=== PATIENT | male | born 1955 | race American Indian/Alaskan Native ===

== ENCOUNTER 2017-04-10 09:35 | Outpatient (CLI) | payer MEDICAID ==
[2017-04-10 10:18] LABS: Blood Urea Nitrogen 12 mg/dL (9-20)
[2017-04-10] MEDS ORDERED: NACL ONE (10:42)
--- NOTE | 2017-04-10 12:29 | Cat Scan Report ---
CT CERVICAL SPINE WITH AND WITHOUT CONTRAST INDICATION: Cervicalgia. COMPARISON: None similar. FINDINGS: Cervical spine CT performed before and after IV contrast. Axial, sagittal and coronal CT reconstruction obtained. Normal imaged posterior fossa and clear mastoid air cells. Bilateral external auditory canal debris may be directly visualized. Predominantly edentulous jaw. Intact craniocervical articulation, dens, predental space and posterior elements. C2-C4 demonstrate anteroinferior degenerative spurring. C5-C7 anterior fusion hardware creates streak artifact, limiting assessment with slightly prominent prevertebral soft tissues at this level as well. No abnormal enhancement or focal fluid collection however. Pharynx and upper hypopharynx appears within normal limits. Right vallecula and left piriform sinus however not well seen with concentric airway narrowing inferiorly as on axial series 3, images 43-50 with mild surrounding soft tissue density/thickening as well. A 1 x 0.9 cm radiodensity also noted at the level of cricoid cartilage/vocal cord on the right, axial image 54, nonspecific, though not excluded for a vocal cord implant, possibly anchored to the thyroid cartilage on the right. Grossly normal thyroid. Clear imaged lung apices. On the obtained axial images: C2-C3 is unremarkable. C3-C4 demonstrates slight uncovertebral spurring and slight neural foramina narrowing. Mild left facet arthropathy. C4-C5 also demonstrates mild bilateral facet arthropathy. C5-C6, C6-C7 and C7-T1 demonstrate degenerative uncovertebral spurring and facet arthropathy with possible neural foraminal narrowing. Cervical spine straightening at this level also seen. Assessment of the spinal canal itself also compromised at these and further inferior levels. CONCLUSION: 1. No acute cervical spine CT abnormality in this patient with multilevel degenerative changes and C5-C7 anterior fusion, as described. 2. Abnormal CT appearance at the level of the hypopharynx inferiorly and the larynx, as described with possibilities including neoplasm and/or prior radiation amongst others with a nonspecific radiodensity/possible vocal cord implant also seen on the right, as detailed above. ENT correlation recommended. Thank you for the opportunity to participate in this patient's care.
== END 2017-04-10 09:36 | disposition home or self-care (01) ==
LOC: CT 09:35
PROVIDERS: ATTEND Anesthesiology
DX: M47.892 Other spondylosis, cervical region (principal); M12.88 Other specific arthropathies, not elsewhere classified, other specified site; M43.22 Fusion of spine, cervical region; Z96.89 Presence of other specified functional implants
CPT/HCPCS: 36415; 72127; 82565; 84520; Q9967

== ENCOUNTER 2017-10-25 09:58 | Emergency (ER) | payer MEDICAID ==
[2017-10-25 10:30] VITALS: BP 178/111
[2017-10-25] MEDS ORDERED: TORADOL IM ONE (11:21)
--- NOTE | 2017-10-25 11:25 | Emergency Department Report ---
<LYUDMILA VALDES - Last Filed: 10/25/17 11:30> ED General Adult HPI - General Chief complaint: Urogenital-Male Stated complaint: GROIN PAIN Time Seen by Provider: 10/25/17 11:17 Source: patient Mode of arrival: Ambulatory Limitations: No Limitations - History of Present Illness Initial comments: This is a 62-year-old male nontoxic, well nourished in appearance, no acute signs of distress presents to the ED with c/o of right groin hernia pain x4 days. Patient stated has history of hernia in the groin for years but has not had anything done to it. Patient denies any urinary symptoms. Patient denies any abdominal pain, chest pain, shortness of breathe, fever, chills, headache, nausea, vomiting, back pain, numbness or tingling. Patient denies any radiation of pain. Denies any urinary symptoms. Patient denies any allergies. PMH includes HTN, MD Complaint: Right groin pain -: days(s) (4) Radiation: non-radiation Severity scale (0 -10): 8 Quality: aching Consistency: constant Improves with: none Worsens with: none Associated Symptoms: denies other symptoms. denies: confusion, chest pain, cough, diaphoresis, fever/chills, headaches, loss of appetite, malaise, nausea/ vomiting, rash, seizure, shortness of breath, syncope, weakness Treatments Prior to Arrival: none - Related Data Previous Rx's Medication Instructions Recorded Last Taken Type Gentamicin 0.3% Ophth Soln 2 drops OP Q4H #1 bottle 10/21/14 Unknown Rx HYDROcodone/APAP 5-325 [[place] 1 - 2 each PO Q6HR PRN #30 tablet 10/21/14 Unknown Rx 5/325] Docusate Sodium [Colace] 100 mg PO BID #30 capsule 10/25/17 Unknown Rx traMADol [Ultram] 50 mg PO Q6HR PRN #12 tablet 10/25/17 Unknown Rx Allergies Allergy/AdvReac Type Severity Reaction Status Date / Time No Known Allergies Allergy Verified 10/21/14 22:27 ED Review of Systems ROS: Stated complaint: GROIN PAIN Other details as noted in HPI Constitutional: denies: chills, fever Eyes: denies: eye pain, eye discharge, vision change ENT: denies: ear pain, throat pain Respiratory: denies: cough, shortness of breath, wheezing Cardiovascular: denies: chest pain, palpitations Endocrine: no symptoms reported Gastrointestinal: denies: abdominal pain, nausea, diarrhea Genitourinary: denies: urgency, dysuria Musculoskeletal: denies: back pain, joint swelling, arthralgia Skin: denies: rash, lesions Neurological: denies: headache, weakness, paresthesias Psychiatric: denies: anxiety, depression Hematological/Lymphatic: denies: easy bleeding, easy bruising ED Past Medical Hx - Past Medical History Hx Hypertension: No - Surgical History Additional Surgical History: Cervical Fussion 1988 - Social History Smoking Status: Current Every Day Smoker Substance Use Type: None - Medications Home Medications: Home Medications Medication Instructions Recorded Confirmed Last Taken Type Gentamicin 0.3% Ophth Soln 2 drops OP Q4H #1 bottle 10/21/14 Unknown Rx HYDROcodone/APAP 5-325 [[place] 1 - 2 each PO Q6HR PRN #30 tablet 10/21/14 Unknown Rx 5/325] Docusate Sodium [Colace] 100 mg PO BID #30 capsule 10/25/17 Unknown Rx traMADol [Ultram] 50 mg PO Q6HR PRN #12 tablet 10/25/17 Unknown Rx ED Physical Exam - General Limitations: No Limitations General appearance: alert, in no apparent distress - Head Head exam: Present: atraumatic, normocephalic - Eye Eye exam: Present: normal appearance Pupils: Present: normal accommodation - ENT ENT exam: Present: normal exam, mucous membranes moist - Neck Neck exam: Present: normal inspection, full ROM - Respiratory Respiratory exam: Present: normal lung sounds bilaterally. Absent: respiratory distress, wheezes, rales, rhonchi, stridor, chest wall tenderness, accessory muscle use, decreased breath sounds, prolonged expiratory - Cardiovascular Cardiovascular Exam: Present: regular rate, normal rhythm, normal heart sounds. Absent: bradycardia, tachycardia, irregular rhythm, systolic murmur, diastolic murmur, rubs, gallop - GI/Abdominal GI/Abdominal exam: Present: soft, tenderness (right groin with swelling. Reducible hernia.), normal bowel sounds. Absent: distended, guarding, rebound, rigid, diminished bowel sounds - Rectal Rectal exam: Present: deferred - Extremities Exam Extremities exam: Present: normal inspection, full ROM, normal capillary refill - Back Exam Back exam: Present: normal inspection, full ROM - Neurological Exam Neurological exam: Present: alert, oriented X3, normal gait - Psychiatric Psychiatric exam: Present: normal affect, normal mood - Skin Skin exam: Present: warm, dry, intact, normal color. Absent: rash ED Course Vital Signs 10/25/17 10:27 Temperature 98.2 F Pulse Rate 64 Respiratory 16 Rate Blood Pressure 178/111 O2 Sat by Pulse 97 Oximetry - Reevaluation(s) Reevaluation #1: 10/25/17 11:30 Patient is speaking in full sentences with no signs of distress noted. ED Medical Decision Making - Medical Decision Making This is a 62-year-old male that presents with right groin hernia pain. Patient is stable and was examined by me and Dr. Limon. Patient is stable and was examined by me. Dr. Limon has reduced the hernia successfully with no completions. Patient is discharged with motrin. Patient was referred to Follow- up with a primary care/general surgeon doctor in 3-5 days or if symptoms worsen and continue return to emergency room as soon as possible. At time of discharge , the patient does not seem toxic or ill in appearance. No acute signs of distress noted. Patient agrees to discharge treatment plan of care. No further questions noted by the patient. Critical care attestation.: If time is entered above; I have spent that time in minutes in the direct care of this critically ill patient, excluding procedure time. ED Disposition Clinical Impression: Hernia Disposition: DC-01 TO HOME OR SELFCARE Condition: Stable Additional Instructions: Follow-up with a primary care/general surgeon doctor in 3-5 days or if symptoms worsen and continue return to emergency room as soon as possible. Prescriptions: Docusate Sodium [Colace] 100 mg PO BID #30 capsule traMADol [Ultram] 50 mg PO Q6HR PRN #12 tablet PRN Reason: Pain Referrals: CAITLIN YARBROUGH MD [Staff Physician] - 3-5 Days <MONICA LIMON - Last Filed: 10/25/17 11:52> ED Medical Decision Making - Medical Decision Making hernia reduced with ease while patient in Trendelenburg position ED Disposition Is pt being admited?: No Does the pt Need Aspirin: No
== END 2017-10-25 12:06 | disposition home or self-care (01) ==
LOC: ED 09:58
DX: K46.9 Unspecified abdominal hernia without obstruction or gangrene (principal); F17.200 Nicotine dependence, unspecified, uncomplicated
CPT/HCPCS: 96372; 99282; J1885

== ENCOUNTER 2017-10-29 14:09 | Emergency (ER) | payer MEDICAID ==
[2017-10-29] MEDS ORDERED: CATAPRES PO ONE (17:36)
[2017-10-29] MEDS ORDERED: CATAPRES ONE (17:36)
--- NOTE | 2017-10-29 17:41 | Emergency Department Report ---
ED General Adult HPI - General Chief complaint: High BP Stated complaint: HTN Time Seen by Provider: 10/29/17 17:30 Source: patient Mode of arrival: Ambulatory Limitations: No Limitations - History of Present Illness Initial comments: He is a [id number] male who has past medical history of hypertension who is presenting with elevated blood pressure. Patient states he went to his pain clinic this morning his blood pressure was elevated he's been out of his Norvasc 10 mg for the past 3 days. Patient states causes primary doctor but was told that he could not get a refill less he came in to see the doctor and the patient was unable to give fit and onto schedule. Patient has appointment for the next week or 2 he is not sure of the date at this time. Patient denies any chest pain or shortness of breath decreased urination. - Related Data Previous Rx's Medication Instructions Recorded Last Taken Type Gentamicin 0.3% Ophth Soln 2 drops OP Q4H #1 bottle 10/21/14 Unknown Rx HYDROcodone/APAP 5-325 [[place] 1 - 2 each PO Q6HR PRN #30 tablet 10/21/14 Unknown Rx 5/325] Docusate Sodium [Colace] 100 mg PO BID #30 capsule 10/25/17 Unknown Rx traMADol [Ultram] 50 mg PO Q6HR PRN #12 tablet 10/25/17 Unknown Rx Amlodipine Besylate [Norvasc] 10 mg PO DAILY #30 tablet 10/29/17 Unknown Rx Allergies Allergy/AdvReac Type Severity Reaction Status Date / Time No Known Allergies Allergy Verified 10/21/14 22:27 ED Review of Systems ROS: Stated complaint: HTN Other details as noted in HPI Comment: All other systems reviewed and negative ED Past Medical Hx - Past Medical History Hx Hypertension: Yes - Surgical History Additional Surgical History: Cervical Fussion 1988 - Social History Smoking Status: Current Every Day Smoker Substance Use Type: Alcohol - Medications Home Medications: Home Medications Medication Instructions Recorded Confirmed Last Taken Type Gentamicin 0.3% Ophth Soln 2 drops OP Q4H #1 bottle 10/21/14 Unknown Rx HYDROcodone/APAP 5-325 [[place] 1 - 2 each PO Q6HR PRN #30 tablet 10/21/14 Unknown Rx 5/325] Docusate Sodium [Colace] 100 mg PO BID #30 capsule 10/25/17 Unknown Rx traMADol [Ultram] 50 mg PO Q6HR PRN #12 tablet 10/25/17 Unknown Rx Amlodipine Besylate [Norvasc] 10 mg PO DAILY #30 tablet 10/29/17 Unknown Rx ED Physical Exam - General Limitations: No Limitations General appearance: alert, in no apparent distress - Head Head exam: Present: atraumatic, normocephalic - Eye Eye exam: Present: normal appearance - ENT ENT exam: Present: mucous membranes moist - Neck Neck exam: Present: normal inspection - Respiratory Respiratory exam: Present: normal lung sounds bilaterally. Absent: respiratory distress - Cardiovascular Cardiovascular Exam: Present: regular rate, normal rhythm. Absent: systolic murmur, diastolic murmur, rubs, gallop - GI/Abdominal GI/Abdominal exam: Present: soft, normal bowel sounds - Rectal Rectal exam: Present: deferred - Extremities Exam Extremities exam: Present: normal inspection - Back Exam Back exam: Present: normal inspection - Neurological Exam Neurological exam: Present: alert, oriented X3 - Psychiatric Psychiatric exam: Present: normal affect, normal mood - Skin Skin exam: Present: warm, dry, intact, normal color. Absent: rash ED Course Vital Signs 10/29/17 14:24 Temperature 98.8 F Pulse Rate 65 Respiratory 18 Rate Blood Pressure 173/112 O2 Sat by Pulse 98 Oximetry ED Medical Decision Making - Medical Decision Making She was given Catapres here in the emergency department will be discharged home with a refill for his Norvasc and he's able to see his doctor. Critical care attestation.: If time is entered above; I have spent that time in minutes in the direct care of this critically ill patient, excluding procedure time. ED Disposition Clinical Impression: Hypertensive urgency Disposition: DC-01 TO HOME OR SELFCARE Is pt being admited?: No Does the pt Need Aspirin: No Condition: Stable Instructions: Chronic Hypertension (ED) Prescriptions: Amlodipine Besylate [Norvasc] 10 mg PO DAILY #30 tablet
[2017-10-29 17:44] VITALS: BP 148/106
== END 2017-10-29 18:18 | disposition home or self-care (01) ==
LOC: ED 14:09
DX: I16.0 Hypertensive urgency (principal); I10 Essential (primary) hypertension; F17.200 Nicotine dependence, unspecified, uncomplicated
CPT/HCPCS: 99282

== ENCOUNTER 2017-11-21 08:17 | Day surgery (SDC) | payer MEDICAID ==
--- NOTE | 2017-11-20 12:59 | Anesthesia Day of Surgery ---
Anesthesia Day of Surgery - Day of Surgery Patient Examined: Yes Patient H&P Reviewed: Yes Patient is NPO: Yes
--- NOTE | 2017-11-20 13:01 | Anesthesia Consultation ---
Anesthesia Consult and Med Hx Date of service: 11/20/17 - Airway Anesthetic Teeth Evaluation: Poor, Edentulous ROM Head & Neck: Adequate Mental/Hyoid Distance: Adequate Mallampati Class: Class II Intubation Access Assessment: Probably Good - Pulmonary Exam CTA: Yes - Cardiac Exam Cardiac Exam: RRR - Pre-Operative Health Status ASA Pre-Surgery Classification: ASA2 Proposed Anesthetic Plan: General - Pulmonary Hx Smoking: Yes (1/2 PPD FOR 35 YEARS) - Cardiovascular System Hx Hypertension: Yes (15 YEARS) - Central Nervous System Hx Back Pain: Yes Hx Psychiatric Problems: No - Other Systems Hx Alcohol Use: Yes ([facility]) Hx Substance Use: No Hx Cancer: No
--- NOTE | 2017-11-20 13:47 | XRay Report ---
ROUTINE CHEST, TWO VIEWS: HISTORY: Presurgical evaluation. The trachea, heart, mediastinal contour, lung rasmussen and bony thorax are unremarkable. Lower cervical fusion changes are partially imaged. IMPRESSION: Unremarkable chest x-ray.
[~2017-11-21 08:17] MED LIST: LACTATED RINGERS 1,000 ML IV SCH; VERSED IV NR
[2017-11-21] MEDS ORDERED: ZEMURON IV ONE (09:55)
[2017-11-21] MEDS ORDERED: XYLOCAINE MPF 2% ONE ×2 (09:55→13:36)
[2017-11-21] MEDS ORDERED: DIPRIVAN 10 MG/ML IV ONE (09:56)
[2017-11-21] MEDS ORDERED: SUBLIMAZE ONE (09:56)
[2017-11-21] MEDS ORDERED: ANCEF/STERILE WATER 2 GM/20 ML IV NR ×3 (10:00→11:00)
[2017-11-21] MEDS ORDERED: XYLOCAINE 1% 20 mL ONE (10:32)
[2017-11-21] MEDS ORDERED: MARCAINE 0.5% 30 ML INFILTRATI ONE (10:32)
[2017-11-21] MEDS ORDERED: NACL 0.9% IR ONE (10:42)
[2017-11-21] MEDS ORDERED: XYLOCAINE 1% 20 mL INFILTRATI ONE (10:42)
[2017-11-21] MEDS ORDERED: MARCAINE 0.5% INFILTRATI ONE (10:42)
[2017-11-21] MEDS ORDERED: TORADOL ONE (12:51)
[2017-11-21] MEDS ORDERED: ZOFRAN ONE (12:51)
[2017-11-21] MEDS ORDERED: ROBINUL ONE (13:00)
[2017-11-21] MEDS ORDERED: NEOSTIGMINE ONE (13:00)
[2017-11-21] MEDS ORDERED: DECADRON ONE (13:29)
--- NOTE | 2017-11-21 13:38 | Discharge Summary ---
Providers - Providers Date of Admission: 11/21/2017 Date of discharge: 11/21/17 Attending physician: CAITLIN YARBROUGH MD Primary care physician: VALENTE BAUER Hospitalization Condition: Stable Pertinent studies: none Procedures: Lap BIH with mesh Hospital course: Uneventful surgery. Disposition: -01 TO HOME OR SELFCARE Time spent for discharge: 15min - Discharge Diagnoses (1) Inguinal hernia bilateral, non-recurrent Status: Acute Qualifiers: Obstruction and gangrene presence: without obstruction or gangrene Recurrence: non-recurrent Qualified Code(s): K40.20 - Bilateral inguinal hernia, without obstruction or gangrene, not specified as recurrent Comment: Presented for elective Lap BIH repair Core Measure Documentation - Palliative Care Palliative Care/ Comfort Measures: Not Applicable - Core Measures Any of the following diagnoses?: none - VTE Discharge Requirements Deep Vein Thrombosis/Pulmonary Embolism Present on Admission: No Exam - Constitutional Vitals: Temp Pulse Resp BP Pulse Ox 98.6 F 75 12 148/94 99 11/21/17 10:05 11/21/17 10:05 11/21/17 10:05 11/21/17 10:05 11/21/17 09:25 General appearance: Present: no acute distress - Respiratory Respiratory effort: normal - Cardiovascular Heart Sounds: Present: S1 & S2. Absent: rub, click - Abdominal General gastrointestinal: Present: soft, other (No bleeding from incisions) - Integumentary Integumentary: Present: clear, warm, dry Plan Activity: no driving until cleared by PCP Diet: regular Wound: open to air, keep clean and dry, other (May shower tomorrow. Pat dry wounds) Special Instructions: no heavy lifting (no strenuous activity) Follow up with: VALENTE BAUER MD [Primary Care Provider] - 7 Days CAITLIN YARBROUGH MD [Staff Physician] - 14 Days
--- NOTE | 2017-11-21 13:43 | Post Operative Note ---
Date of procedure: 11/21/17 (Dictation#[id number]) Pre-op diagnosis: BIH Post-op diagnosis: same Findings: Left direct inguinal hernia and cord lipoma; right indirect inguinal hernia and cord lipoma Procedure: Lap BIH repair with mesh Anesthesia: PATRICK Surgeon: CAITLIN YARBROUGH Blue Line Trimmer: VALERIA GRIGSBY Estimated blood loss: minimal (less than 10cc) Pathology: none Condition: stable Disposition: PACU
--- NOTE | 2017-11-21 17:42 | Operative Report ---
PREOPERATIVE DIAGNOSIS: Bilateral inguinal hernias. POSTOPERATIVE DIAGNOSIS: Bilateral inguinal hernias. PROCEDURE: Laparoscopic bilateral inguinal herniorrhaphy with mesh. ATTENDING PHYSICIAN: Henry Strong MD FISHER LAMPARA NET: Dr. Roberts. ANESTHESIA: General. ESTIMATED BLOOD LOSS: Less than 10 mL. FLUIDS: 1600 mL. URINE OUTPUT: 350 mL. FINDINGS: Small direct inguinal hernia on the left with large cord lipoma on the right. A moderate size indirect inguinal hernia with cord lipoma. SPECIMENS: None. DRAINS: None. COMPLICATIONS: None. DISPOSITION: Stable transport to Recovery. INDICATIONS: This is a 62-year-old male who presented with complaints of right inguinal pain. The patient was assessed to have a reducible right inguinal hernia and possibly left. The patient is assessed to be in need for bilateral inguinal herniorrhaphy. Procedure, risks, benefits, alternatives were explained in detail to the patient. Risks included but were not limited to infection, bleeding, pain, injury to surrounding structures, possible recurrence, possible need for further procedures in the future. The patient understood and consented. OPERATIVE NOTE: The patient was brought to the operating room and placed on table in supine position. After adequate general anesthesia was established, Mane catheter was inserted. SCDs were in place. Sterile prep and drape was performed. The patient received Ancef at the beginning of the case as well as dexamethasone 0.1 mg/kg at induction. Timeout was performed. I began by anesthetizing the subumbilical skin. A curvilinear incision was made. Dissection was carried down to the left anterior rectus sheath. Transverse incision was made. Rectus muscle was mobilized anteriorly and a 12 mm port was inserted below it. Preperitoneal space was created with insufflation and with blunt dissection. Once enough space had been created, a 5 mm port was inserted inferiorly about 3 fingerbreadths away. We watched it go and under direct vision, a blunt dissection primarily was done to expose the left cord structures. Dissection was carried all the way lateral to the anterior superior iliac spine. Once this was done, another 5 mm port was inserted medial to the anterior superior iliac spine, taking care to not be too close for risk of injuring the nerves at a region in that area. We identified a cord lipoma on the left as well as a small direct inguinal hernia. Cord structures were identified. Fat tissue was mobilized back. Of note, there was a very thick layer of preperitoneal fat tissue, which complicated the dissection. This required extra time to dissect all the fat. We had more difficulty on the right side, on the left we thankfully were able to identify the epigastric vessel early on and on the right side, the dissection actually began above the epigastric vessel. It was difficult to tell the exact plane that we needed to be and due to the large amount of fat tissue. This added on another 45 minutes to the case trying to dissect through the fat and identify all the terry structures. In any event, we identified all the terry structures on the left, I saw no evidence of any femoral hernia. Once all that was dissected and we were satisfied with the exposure, we then turned our attention to the right side. Initially, we began the dissection unknowingly going above the epigastric vessels; however, we were able to eventually identify that we had pulled it down. We then dissected underneath it and were able to then get a much clearer picture of the anatomy. We dissected all the way lateral to the anterior superior iliac spine. The pubis on both sides have been dissected out. We were able to dissect the indirect hernia sac and it from the cord structures as well as a cord lipoma, all this was dissected back. We had a really good exposure of the cord structures and the dissection had been carried fairly far back to give us enough room to cover the area with mesh with minimal risk of recurrence. We then used 3DMax mesh of right and the left medium sizes to support that area. They appeared to lay very well. We covered the entire area including both indirect and direct inguinal hernia potential spaces as well as femoral hernia spaces. Mesh appeared to lay very well holding down the inferior edges. We then desufflated the abdomen slowly, we appeared to have a very nice lay and good support of the mesh, while holding the edges down, we then removed all the ports. The anterior rectus sheath was closed with a single 0 Vicryl stitch. Additional local was injected. We had injected a 50:50 mix of 1% lidocaine and 0.5% Marcaine. Skin sites were closed with interrupted 4-0 Monocryl subcuticular stitch. The skin was cleaned and dried, dressings were placed. The patient tolerated the procedure well. There were no complications. All counts were correct at the end of the case. JOB# [id number] HALI/JAUN
[2017-11-21 20:53] VITALS: BP 110/71
== END 2017-11-21 15:40 | disposition home or self-care (01) ==
LOC: OR 08:17
PROVIDERS: ATTEND Surgery
DX: K40.20 Bilateral inguinal hernia, without obstruction or gangrene, not specified as recurrent (principal); I10 Essential (primary) hypertension; G47.33 Obstructive sleep apnea (adult) (pediatric); F17.210 Nicotine dependence, cigarettes, uncomplicated
CPT/HCPCS: 49650; 71046; 93005; 93010; C1781; J1100; J1885; J2250; J2405; J2704; J2710; J3010; J7120

== ENCOUNTER 2018-12-13 07:27 | Emergency (ER) | payer MEDICAID ==
[2018-12-13 07:30] VITALS: BP 134/99
[2018-12-13] MEDS ORDERED: NORCO 5/325 PO ONE (07:54)
--- NOTE | 2018-12-13 07:54 | Emergency Department Report ---
HPI - General Chief Complaint: Extremity Injury, Upper Time Seen by Provider: 12/13/18 07:43 - HPI HPI: Patient is a 63-year-old male who comes to the ER today complaining of bilateral wrist pain. He states that he does have chronic wrist pain over the last couple days the right has really started to hurt him more than usual. Patient denies any fall, blunt trauma or other potential activity that could have caused an acute injury. Patient is on gabapentin and [place] at home but has run out. He also takes Zanaflex but that has not helped the pain. Patient also reports pain on Norvasc. Patient takes gabapentin for chronic pain involving his upper extremities but the patient describes the current pain as different than his usual pain. There is swelling noted to the medial aspect of the right wrist. ED Past Medical Hx - Past Medical History Hx Hypertension: Yes Hx Arthritis: Yes Hx HIV: No - Surgical History Past Surgical History?: Yes Additional Surgical History: Cervical Fusion, hernia repair - Family History Family history: no significant - Social History Smoking Status: Current Every Day Smoker Substance Use Type: Alcohol - Medications Home Medications: Home Medications Medication Instructions Recorded Confirmed Last Taken Type Gabapentin [Neurontin] 400 mg PO Q8HR 11/16/17 11/16/17 Unknown History HYDROcodone/APAP 7.5-325 [[place] 1 each PO Q6HR PRN 11/16/17 11/16/17 Unknown History 7.5/325] Amlodipine Besylate [Norvasc] 10 mg PO DAILY 30 Days #30 tablet 06/18/18 Unknown Rx traMADol [Ultram] 50 mg PO Q6HR PRN #10 tablet 12/13/18 Unknown Rx ED Review of Systems ROS: Stated complaint: WRIST PAIN Other details as noted in HPI Comment: All other systems reviewed and negative Physical Exam - Physical Exam Vital Signs: Vital Signs 12/13/18 07:29 Temperature 98.2 F Pulse Rate 98 H Respiratory 18 Rate Blood Pressure 134/99 O2 Sat by Pulse 100 Oximetry Physical Exam: WDWN patient in NAD VS per RN flow sheet Alert and oriented to person, place and time. S1-S2. No S3 or S4. No systolic or diastolic murmur. No JVD. No pitting edema. Lungs clear to auscultation bilaterally anteriorly and posteriorly. Abdomen soft nontender bowel sounds x4 RUE: medial/ulnar/radial nerve intact; plus 2 radial and ulnar pulses; rapid cap refill; pos finksteins test. mild swelling over medial aspect of right wrist. Mood and affect appropriate. ED Course Vital Signs 12/13/18 07:29 Temperature 98.2 F Pulse Rate 98 H Respiratory 18 Rate Blood Pressure 134/99 O2 Sat by Pulse 100 Oximetry - Reevaluation(s) Reevaluation #1: 12/13/18 09:00 HR 90 on provider exam no longer taking metoprolol per his MD instructions - Joint Aspiration/Injection Consent Obtained: verbal consent Time Out Performed: Yes Indications: injection of medication Side of Body: right Joint Aspirated: wrist/hand Ultrasound Guidance: No Skin Prep: Povidone-Iodine1% Needle Size Used: 22G Syringe Size Used: Other Total Fluid Obtained (mls): 0 Medication Injected, if any: Triamcinolone Acetate Amount of Medication Injected (mls): 10 (mg) Patient Tolerated Procedure: well Complications: none ED Medical Decision Making - Radiology Data Radiology results: report reviewed, image reviewed - Medical Decision Making xray noted medicated for pain with norco x 1 note pt is out of his lortab and gabapent. no relief of pain see exam kenalog inj to r wrist for tendonitis. neurovasc intact before and after the injection he tolerated the procedure well dc home with dc plan of care including ortho follow up. pt has been educated on his bp being slightly elevated today- he does concur with pain. He is taking his norvasc at home. he will monitor and follow up if it remains elevated after resolution of his acute pain. pt is neuro intact without sob/headache/ chest pain or other complaint. ambulatory and non toxic on dc. Vital Signs 12/13/18 12/13/18 07:29 08:09 Temperature 98.2 F Pulse Rate 98 H Respiratory 18 18 Rate Blood Pressure 134/99 O2 Sat by Pulse 100 Oximetry - Differential Diagnosis ro acute fx/injury Critical care attestation.: If time is entered above; I have spent that time in minutes in the direct care of this critically ill patient, excluding procedure time. ED Disposition Clinical Impression: Wrist pain, Tendonitis, HTN (hypertension) Disposition: DC-01 TO HOME OR SELFCARE Is pt being admited?: No Does the pt Need Aspirin: No Condition: Stable Instructions: Tendinitis (ED), Hypertension (ED) Additional Instructions: DIET TOLERATED MEDS ORDERED TODAY IN ER FOLLOW INSTRUCTIONS ON THE BOTTLE FOLLOW UP PCP WITHIN 48 HOURS TO ENSURE YOU ARE GETTING BETTER ACTIVITY TOLERATED MOTRIN OR TYLENOL FOR PAIN OR FEVER RETURN TO THE ER FOR WORSENING SYMPTOMS NOT RELIEVED BY YOUR MEDICATIONS. You have been given a referral to an orthopedic doctor Dr. Hurt's information as below. Follow up with him surgery for wrist pain persists. Follow up with her primary care for refill of her Lortab and gabapentin Prescriptions: traMADol [Ultram] 50 mg PO Q6HR PRN #10 tablet PRN Reason: Pain Referrals: SHASHANK HURT MD [Staff Physician] - 3-5 Days Time of Disposition: 08:51
--- NOTE | 2018-12-13 08:45 | XRay Report ---
RIGHT WRIST RADIOGRAPHS INDICATION: Pain. COMPARISON: None similar. FINDINGS: AP, lateral and oblique right wrist radiographs, 4 projections demonstrate intact carpal rows and also remainder imaged bones. Approximately 0.5 cm scaphoid lucency medially presumed degenerative. Mild dorsal soft tissue prominence/swelling at the wrist possible. CONCLUSION: Right wrist soft tissue prominence/mild swelling dorsally without acute bony abnormality, as described. Please correlate. Thank you for the opportunity to participate in this patient's care.
[2018-12-13] MEDS ORDERED: KENALOG-40 INTRAOCULA ONE (09:00)
== END 2018-12-13 10:07 | disposition home or self-care (01) ==
LOC: ED 07:27
DX: M77.9 Enthesopathy, unspecified (principal); I10 Essential (primary) hypertension
CPT/HCPCS: 20605; 73110; 99283; J3301